=== PATIENT | female | born 1955 | race Two or more races ===

== ENCOUNTER 2022-02-03 11:30 | Outpatient (CLI) | payer MEDICARE | END 2022-02-03 23:59 | disposition home or self-care (01) | LOC: MSC 11:30 | PROVIDERS: ATTEND Anesthesiology | DX: G89.4 Chronic pain syndrome (principal); M54.16 Radiculopathy, lumbar region; M40.299 Other kyphosis, site unspecified; M62.830 Muscle spasm of back; Z98.1 Arthrodesis status; M54.2 Cervicalgia; Z96.653 Presence of artificial knee joint, bilateral; Z79.891 Long term (current) use of opiate analgesic ==

== ENCOUNTER 2022-02-06 11:20 | Outpatient (CLI) | payer MEDICARE | END 2022-02-06 23:59 | disposition home or self-care (01) | LOC: WOU 11:20 | PROVIDERS: ATTEND Podiatrist Foot & Ankle Surgery | DX: I89.0 Lymphedema, not elsewhere classified (principal); M19.071 Primary osteoarthritis, right ankle and foot; M79.672 Pain in left foot; M79.671 Pain in right foot; Z74.09 Other reduced mobility | CPT/HCPCS: 73600; 73620 ×2; G0463 ==

== ENCOUNTER 2022-03-10 11:46 | Outpatient (CLI) | payer MEDICARE | END 2022-03-10 23:59 | disposition home or self-care (01) | LOC: MSC 11:46 | PROVIDERS: ATTEND Anesthesiology | DX: G89.4 Chronic pain syndrome (principal); M54.12 Radiculopathy, cervical region; M54.16 Radiculopathy, lumbar region; M40.299 Other kyphosis, site unspecified; M62.830 Muscle spasm of back; Z79.891 Long term (current) use of opiate analgesic; I49.9 Cardiac arrhythmia, unspecified; Z95.810 Presence of automatic (implantable) cardiac defibrillator; I13.0 Hypertensive heart and chronic kidney disease with heart failure and stage 1 through stage 4 chronic kidney disease, or unspecified chronic kidney disease; I50.9 Heart failure, unspecified; N18.9 Chronic kidney disease, unspecified; M19.90 Unspecified osteoarthritis, unspecified site ==

== ENCOUNTER 2022-04-07 11:30 | Outpatient (CLI) | payer MEDICARE | END 2022-04-07 23:59 | disposition home or self-care (01) | LOC: MSC 11:30 | PROVIDERS: ATTEND Anesthesiology | DX: G89.4 Chronic pain syndrome (principal); M54.12 Radiculopathy, cervical region; M54.16 Radiculopathy, lumbar region; M43.26 Fusion of spine, lumbar region; M40.299 Other kyphosis, site unspecified; M62.830 Muscle spasm of back; M96.1 Postlaminectomy syndrome, not elsewhere classified; Z79.891 Long term (current) use of opiate analgesic; I49.9 Cardiac arrhythmia, unspecified; Z95.810 Presence of automatic (implantable) cardiac defibrillator; I13.0 Hypertensive heart and chronic kidney disease with heart failure and stage 1 through stage 4 chronic kidney disease, or unspecified chronic kidney disease; I50.9 Heart failure, unspecified; N18.9 Chronic kidney disease, unspecified; M19.90 Unspecified osteoarthritis, unspecified site; Z96.653 Presence of artificial knee joint, bilateral ==

== ENCOUNTER 2022-05-12 11:30 | Outpatient (CLI) | payer MEDICARE | END 2022-05-12 23:59 | disposition home or self-care (01) | LOC: MSC 11:30 | PROVIDERS: ATTEND Anesthesiology | DX: G89.4 Chronic pain syndrome (principal); M54.16 Radiculopathy, lumbar region; M43.26 Fusion of spine, lumbar region; M40.299 Other kyphosis, site unspecified; M62.830 Muscle spasm of back; Z79.891 Long term (current) use of opiate analgesic; I49.9 Cardiac arrhythmia, unspecified; Z95.810 Presence of automatic (implantable) cardiac defibrillator; I13.0 Hypertensive heart and chronic kidney disease with heart failure and stage 1 through stage 4 chronic kidney disease, or unspecified chronic kidney disease; I50.9 Heart failure, unspecified; N18.9 Chronic kidney disease, unspecified; M19.90 Unspecified osteoarthritis, unspecified site; Z96.653 Presence of artificial knee joint, bilateral ==

== ENCOUNTER 2022-06-16 10:11 | Outpatient (CLI) | payer MEDICARE | END 2022-06-16 23:59 | disposition home or self-care (01) | LOC: MSC 10:11 | PROVIDERS: ATTEND Anesthesiology | DX: G89.4 Chronic pain syndrome (principal); M54.16 Radiculopathy, lumbar region; M43.26 Fusion of spine, lumbar region; M40.299 Other kyphosis, site unspecified; M62.830 Muscle spasm of back; Z79.891 Long term (current) use of opiate analgesic; I49.9 Cardiac arrhythmia, unspecified; Z95.810 Presence of automatic (implantable) cardiac defibrillator; I13.0 Hypertensive heart and chronic kidney disease with heart failure and stage 1 through stage 4 chronic kidney disease, or unspecified chronic kidney disease; I50.9 Heart failure, unspecified; N18.9 Chronic kidney disease, unspecified; M19.90 Unspecified osteoarthritis, unspecified site; Z96.653 Presence of artificial knee joint, bilateral ==

== ENCOUNTER 2022-07-07 11:12 | Outpatient (CLI) | payer MEDICARE | END 2022-07-07 23:59 | disposition home or self-care (01) | LOC: MSC 11:12 | PROVIDERS: ATTEND Anesthesiology | DX: G89.4 Chronic pain syndrome (principal); M54.16 Radiculopathy, lumbar region; M43.26 Fusion of spine, lumbar region; M40.299 Other kyphosis, site unspecified; M62.830 Muscle spasm of back; M54.2 Cervicalgia; Z79.891 Long term (current) use of opiate analgesic; Z99.3 Dependence on wheelchair; M19.90 Unspecified osteoarthritis, unspecified site; Z96.653 Presence of artificial knee joint, bilateral; I49.9 Cardiac arrhythmia, unspecified; Z95.810 Presence of automatic (implantable) cardiac defibrillator; I13.0 Hypertensive heart and chronic kidney disease with heart failure and stage 1 through stage 4 chronic kidney disease, or unspecified chronic kidney disease; I50.9 Heart failure, unspecified; N18.9 Chronic kidney disease, unspecified ==

== ENCOUNTER 2022-08-18 10:32 | Outpatient (CLI) | payer MEDICARE | END 2022-08-18 23:59 | disposition home or self-care (01) | LOC: MSC 10:32 | PROVIDERS: ATTEND Anesthesiology | DX: G89.4 Chronic pain syndrome (principal); M54.16 Radiculopathy, lumbar region; M40.299 Other kyphosis, site unspecified; M62.830 Muscle spasm of back; M43.26 Fusion of spine, lumbar region; Z79.891 Long term (current) use of opiate analgesic; Z99.3 Dependence on wheelchair; Z74.09 Other reduced mobility; M19.90 Unspecified osteoarthritis, unspecified site; Z96.653 Presence of artificial knee joint, bilateral; I49.9 Cardiac arrhythmia, unspecified; Z95.810 Presence of automatic (implantable) cardiac defibrillator; I13.0 Hypertensive heart and chronic kidney disease with heart failure and stage 1 through stage 4 chronic kidney disease, or unspecified chronic kidney disease; I50.9 Heart failure, unspecified; N18.9 Chronic kidney disease, unspecified ==

== ENCOUNTER 2022-09-15 10:00 | Outpatient (CLI) | payer MEDICARE | END 2022-09-15 23:59 | disposition home or self-care (01) | LOC: MSC 10:00 | PROVIDERS: ATTEND Anesthesiology | DX: R19.7 Diarrhea, unspecified (principal); R05.9 Cough, unspecified; G89.4 Chronic pain syndrome; M54.16 Radiculopathy, lumbar region; M40.299 Other kyphosis, site unspecified; M62.830 Muscle spasm of back ==

== ENCOUNTER → 2022-10-20 | Outpatient (CLI) | payer MEDICARE | END | disposition home or self-care (01) | LOC: MSC 09:33 | PROVIDERS: ATTEND Anesthesiology | DX: G89.4 Chronic pain syndrome (principal); M54.16 Radiculopathy, lumbar region; M40.299 Other kyphosis, site unspecified; M62.830 Muscle spasm of back; Z79.891 Long term (current) use of opiate analgesic; Z99.3 Dependence on wheelchair ==

== ENCOUNTER → 2022-11-17 | Outpatient (CLI) | payer MEDICARE | END | disposition home or self-care (01) | LOC: MSC 11:00 | PROVIDERS: ATTEND Anesthesiology | DX: G89.4 Chronic pain syndrome (principal); M54.16 Radiculopathy, lumbar region; M54.2 Cervicalgia; M40.299 Other kyphosis, site unspecified; M62.830 Muscle spasm of back; M43.26 Fusion of spine, lumbar region; Z79.891 Long term (current) use of opiate analgesic; Z99.3 Dependence on wheelchair ==

== ENCOUNTER 2022-12-22 10:59 | Outpatient (CLI) | payer MEDICARE | END 2022-12-22 23:59 | disposition home or self-care (01) | LOC: MSC 10:59 | PROVIDERS: ATTEND Anesthesiology | DX: G89.4 Chronic pain syndrome (principal); M54.16 Radiculopathy, lumbar region; M54.2 Cervicalgia; M62.830 Muscle spasm of back; M96.1 Postlaminectomy syndrome, not elsewhere classified; Z79.891 Long term (current) use of opiate analgesic ==